=== PATIENT | male | born 1970 | race Caucasian/White ===

== ENCOUNTER 2017-02-25 14:24 | Emergency (ER) | payer SELFPAY ==
[~2017-02-25 14:24] MED LIST: ASPI-630 PO; FLUT16SP21 NS; LISI1TAB5 PO; METO-247 PO; OMEP40CA5 PO; ROPI0.5T PO
[2017-02-25] MEDS ORDERED: METOPROLOL TARTRATE 5 MG/5 ML VIAL. IV ONE (15:21)
[2017-02-25 15:36] LABS: ALBUMIN 3.6 g/dL (3.4-5.0); CALCIUM 9.1 mg/dL (8.5-10.1); CREATININE 1.4 mg/dL (0.7-1.3); GFR 54.8; TOTAL BILIRUBIN 0.3 mg/dL (0.2-1.0); TOTAL PROTEIN 7.1 g/dL (6.4-8.2)
[2017-02-25 15:41] LABS: BASO # 0.1 x10^3/uL (0.0-0.2); BASO % 1 % (0-3); EOS # 0.2 x10^3/uL (0.0-0.7); EOS % 2 % (0-3); HEMATOCRIT 45.8 % (39.0-53.0); HEMOGLOBIN 16.1 g/dL (13.0-17.5); LYMPH # 2.6 x10^3/uL (1.0-4.8); LYMPH % 36 % (24-48); MEAN CORPUSCULAR HEMOGLOBIN 30 pg (25-35); MEAN CORPUSCULAR HGB CONC 35 g/dL (31-37); MEAN CORPUSCULAR VOLUME 86 fL (79-100); MONO # 0.5 x10^3/uL (0.0-1.1); MONO % 7 % (0-9); NEUT # 3.8 x10^3uL (1.8-7.7); NEUT % 54 % (31-73); PLATELET COUNT 269 x10^3/uL (140-400); RED BLOOD COUNT 5.31 x10^6/uL (4.30-5.70); WHITE BLOOD COUNT 7.1 x10^3/uL (4.0-11.0)
[2017-02-25] MEDS ORDERED: LIDO:MAALOX 1:1 20 ML SINGLE DOSE PO ONE (16:15)
--- NOTE | 2017-02-25 16:30 | PHYS DOC ---
Past History Past Medical History: Hypertension, [place] Past Surgical History: No Surgical History Alcohol Use: Occasionally Drug Use: Marijuana Adult General Chief Complaint Chief Complaint: CHEST PAIN HPI HPI Patient is a 46 year old M who presents with chest pain. Roger states that he began having intermittent central sharp chest pain that radiates to the left arm and into the fingers on Saturday. He feels that his pain is worse with exacerbation and improved with rest. He states that this is similar to his previous 3 heart attacks. His pain recurred this morning and again just prior to arrival. Review of Systems Review of Systems Constitutional: Denies fever or chills [] Eyes: Denies change in visual acuity, redness, or eye pain [] HENT: Denies nasal congestion or sore throat [] Respiratory: Denies cough or shortness of breath [] Cardiovascular: No additional information not addressed in HPI [] GI: Denies abdominal pain, nausea, vomiting, bloody stools or diarrhea [] : Denies dysuria or hematuria [] Musculoskeletal: Denies back pain or joint pain [] Integument: Denies rash or skin lesions [] Neurologic: Denies headache, focal weakness or sensory changes [] Endocrine: Denies polyuria or polydipsia [] Family History Family History Family history was reviewed Current Medications Current Medications Current Medications Medications (Trade) Dose Ordered Sig/Sparkle Start Time Stop Time Status Last Admin Dose Admin Metoprolol Tartrate (Lopressor) 5 mg STK-MED ONCE 02/25/17 15:21 02/25/17 15:22 DC Multi-Ingredient Mouthwash/Gargle (Gi Cocktail) 20 ml 1X ONCE 02/25/17 16:15 02/25/17 16:16 DC He has not been taking his current prescribed medications because he is in between jobs Allergies Allergies Allergies Coded Allergies Type Severity Reaction Last Updated Verified No Known Drug Allergies 01/11/16 No Physical Exam Physical Exam Constitutional: Well developed, well nourished, no acute distress, non-toxic appearance. [] HENT: Normocephalic, atraumatic, bilateral external ears normal, oropharynx moist, no oral exudates, nose normal. [] Eyes: PERRLA, EOMI, conjunctiva normal, no discharge. [] Neck: Normal range of motion, no tenderness, supple, no stridor. [] Cardiovascular:Heart rate regular rhythm, no murmur [] mild tenderness to palpation over the sternum Lungs & Thorax: Bilateral breath sounds clear to auscultation [] Abdomen: Bowel sounds normal, soft, no tenderness, no masses, no pulsatile masses. [] Skin: Warm, dry, no erythema, no rash. [] Back: No tenderness, no CVA tenderness. [] Extremities: No tenderness, no cyanosis, no clubbing, ROM intact, no edema. [] Neurologic: Alert and oriented X 3, normal motor function, normal sensory function, no focal deficits noted. [] Psychologic: Affect normal, judgement normal, mood normal. [] Current Patient Data Vital Signs Vital Signs Date Time Temp Pulse Resp B/P (MAP) Pulse Ox O2 Delivery O2 Flow Rate FiO2 02/25/17 15:25 187/111 (136) 02/25/17 15:04 97.8 70 14 97 Room Air Lab Results Laboratory Tests Test 02/25/17 15:00 White Blood Count 7.1 x10^3/uL (4.0-11.0) Red Blood Count 5.31 x10^6/uL (4.30-5.70) Hemoglobin 16.1 g/dL (13.0-17.5) Hematocrit 45.8 % (39.0-53.0) Mean Corpuscular Volume 86 fL (79-100) Mean Corpuscular Hemoglobin 30 pg (25-35) Mean Corpuscular Hemoglobin Concent 35 g/dL (31-37) Red Cell Distribution Width 13.0 % (11.5-14.5) Platelet Count 269 x10^3/uL (140-400) Neutrophils (%) (Auto) 54 % (31-73) Lymphocytes (%) (Auto) 36 % (24-48) Monocytes (%) (Auto) 7 % (0-9) Eosinophils (%) (Auto) 2 % (0-3) Basophils (%) (Auto) 1 % (0-3) Neutrophils # (Auto) 3.8 x10^3uL (1.8-7.7) Lymphocytes # (Auto) 2.6 x10^3/uL (1.0-4.8) Monocytes # (Auto) 0.5 x10^3/uL (0.0-1.1) Eosinophils # (Auto) 0.2 x10^3/uL (0.0-0.7) Basophils # (Auto) 0.1 x10^3/uL (0.0-0.2) Sodium Level 143 mmol/L (136-145) Potassium Level 4.0 mmol/L (3.5-5.1) Chloride Level 106 mmol/L (98-107) Carbon Dioxide Level 31 mmol/L (21-32) Anion Gap 6 (6-14) Blood Urea Nitrogen 19 mg/dL (8-26) Creatinine 1.4 mg/dL (0.7-1.3) H Estimated GFR (Cockcroft-Gault) 54.8 BUN/Creatinine Ratio 14 (6-20) Glucose Level 93 mg/dL (70-99) Calcium Level 9.1 mg/dL (8.5-10.1) Total Bilirubin 0.3 mg/dL (0.2-1.0) Aspartate Amino Transferase (AST) 13 U/L (15-37) L Alanine Aminotransferase (ALT) 25 U/L (16-63) Alkaline Phosphatase 98 U/L (46-116) Troponin I Quantitative < 0.017 ng/mL (0-0.055) Total Protein 7.1 g/dL (6.4-8.2) Albumin 3.6 g/dL (3.4-5.0) Albumin/Globulin Ratio 1.0 (1.0-1.7) EKG EKG NSR, non-specific ST changes in the lateral leads. Course & Med Decision Making Course & Med Decision Making Pertinent Labs and Imaging studies reviewed. (See chart for details) Admission for ACS rule out was recommended based on risk factors as well as the fact that Roger states this pain is similar to his previous 3 heart attacks. He was strongly advised to be admitted for a minimum of observation. He states that "he has things to do". He declined admission. He was able to verbalize that there is risk for and permeate disability. Dragon Disclaimer Dragon Disclaimer This chart was dictated in whole or in part using Voice Recognition software in a busy, high-work load, and often noisy Emergency Department environment. It may contain unintended and wholly unrecognized errors or omissions. Departure Departure: Impression: Primary Impression: Chest pain Disposition: 07 AGAINST MEDICAL ADVICE Referrals: QASIM UREÑA MD (PCP) ARACELI ESTEVEZ MD Feb 25, 2017 16:30
[2017-02-25 16:57] VITALS: BP 163/88
== END 2017-02-25 16:15 | disposition left against medical advice (07) ==
LOC: ER 14:24
DX: R07.89 Other chest pain (principal); I25.2 Old myocardial infarction; I10 Essential (primary) hypertension
CPT/HCPCS: 36415; 80053; 84484; 85025; 99284

== ENCOUNTER 2018-06-17 16:48 | Emergency (ER) | payer SELFPAY ==
[~2018-06-17] VITALS: Ht 185.4 cm; Wt 100.7 kg
--- NOTE | 2018-06-17 17:19 | PHYS DOC ---
Past History Past Medical History: Hypertension, [place] Past Surgical History: No Surgical History Smoking: Cigarettes Alcohol Use: Occasionally Drug Use: Marijuana Adult General Chief Complaint Chief Complaint: LOWER BACK PAIN OR INJURY HPI HPI Patient is a 47 year old male who presents with complaining of right flank pain for 1 week. Patient complaining of sudden onset of right flank pain with radiation to right lower quadrant that happens several times a day and usually lasts about corroborates and associated with nausea without fever, chills, urinary symptoms, vomiting and diarrhea. Patient states the pain is 10 over 10 during episodes of sharp pain. Patient with the pain partially improves with ibuprofen. Patient denies history of same pain but states had history of urinary tract infection. Review of Systems Review of Systems Constitutional: Denies fever or chills [] Eyes: Denies change in visual acuity, redness, or eye pain [] HENT: Denies nasal congestion or sore throat [] Respiratory: Denies cough or shortness of breath [] Cardiovascular: No additional information not addressed in HPI [] GI: Denies abdominal pain, nausea, vomiting, bloody stools or diarrhea [] : Denies dysuria or hematuria [] Musculoskeletal: Reports back pain Integument: Denies rash or skin lesions [] Neurologic: Denies headache, focal weakness or sensory changes [] Endocrine: Denies polyuria or polydipsia [] All other systems were reviewed and found to be within normal limits, except as documented in this note. Allergies Allergies Allergies Coded Allergies Type Severity Reaction Last Updated Verified No Known Drug Allergies 01/11/16 No Physical Exam Physical Exam Constitutional: Well developed, well nourished,mild distress, non-toxic appearance. [] HENT: Normocephalic, atraumatic Eyes: PERRLA, EOMI, conjunctiva normal, no discharge. [] Neck: Normal range of motion, no tenderness, supple, no stridor. [] Cardiovascular:Heart rate regular rhythm, no murmur [] Lungs & Thorax: Bilateral breath sounds clear to auscultation [] Abdomen: Bowel sounds normal, soft, no tenderness, no masses, no pulsatile masses. [] Skin: Warm, dry, no erythema, no rash. [] Back: No tenderness, no CVA tenderness. [] Extremities: No tenderness, no cyanosis, no clubbing, ROM intact, no edema. [] Neurologic: Alert and oriented X 3, normal motor function, normal sensory function, no focal deficits noted. [] Psychologic: Affect anxious, judgement normal, mood normal. [] EKG EKG [] Radiology/Procedures Radiology/Procedures [] Course & Med Decision Making Course & Med Decision Making Pertinent Labs and Imaging are pending. Evaluation of patient in ER showed 47-year-old male patient with complaining of intermittent episodes of right flank pain for 1 week. Patient had unremarkable physical exam. Patient had blood pressure of 160s at arrival to ER and states he did not take his blood pressure medication because of lack of insurance. CT abdomen and pelvis and UA is pending. Patient treated with Toradol and felt better. Patient care transferred to Dr. Cabrera at 1800.[] Impression : 1. Abdomen Pain 2. Constipation 3. CT shows no Hydronephrosis or finding of Appendicitis 4. Tobacco use Pt. to stay on clear fluid diet x 48 hrs. No solids or milk products. Push fluids. Re-exam if no improvement. Follow up with primary. Rashaun Disclaimer Rashaun Disclaimer This electronic medical record was generated, in whole or in part, using a voice recognition dictation system. Departure Departure: Impression: Primary Impression: Right flank pain Additional Impressions: Uncontrolled hypertension Tobacco abuse Tobacco abuse counseling Referrals: QASIM UREÑA MD (PCP) Rashaun Disclaimer This chart was dictated in whole or in part using Voice Recognition software in a busy, high-work load, and often noisy Emergency Department environment. It may contain unintended and wholly unrecognized errors or omissions. Discharge Summary Brief Hospital Course Allergies Allergies Coded Allergies Type Severity Reaction Last Updated Verified No Known Drug Allergies 01/11/16 No Vital Signs Vital Signs Date Time Temp Pulse Resp B/P (MAP) Pulse Ox O2 Delivery O2 Flow Rate FiO2 06/17/18 19:46 67 190/113 (138) 98 06/17/18 18:59 16 06/17/18 18:29 Room Air 06/17/18 16:55 97.7 Lab Results Laboratory Tests Test 06/17/18 17:55 Urine Collection Type Unknown Urine Color Yellow Urine Clarity Clear Urine pH 7.0 Urine Specific [place] 1.020 Urine Protein Neg (NEG-TRACE) Urine Glucose (UA) Neg mg/dL (NEG) Urine Ketones (Stick) Neg mg/dL (NEG) Urine Blood Neg (NEG) Urine Nitrite Neg (NEG) Urine Bilirubin Neg (NEG) Urine Urobilinogen Dipstick 0.2 mg/dL (0.2 mg/dL) Urine Leukocyte Esterase Neg (NEG) Brief Hospital Course Mr. Mcdonough is a 47 old male who presented with Rt. flank and abd. pain. No surgical pathology noted on CT. To remain on clear fluid diet x 48hrs. Follow up with primary. Return if no improvement. Discharge Information Condition at Discharge: Improved, Stable Disposition/Orders: D/C to Home Dischare Medications Current Medications Ketorolac Tromethamine (Toradol Im) 60 mg 1X ONCE IM Last administered on at 17:21; Start 06/17/18 at 17:30; Stop 06/17/18 at 17:31; Status DC Magnesium Hydroxide (Milk Of Magnesia) 2,400 mg 1X ONCE PO Last administered on 06/17/18at 19:18; Start 06/17/18 at 19:15; Stop 06/17/18 at 19:16; Status DC Active Scripts Active Reported Aspirin 81 Mg Tab.chew 81 Mg PO DAILY Fluticasone Propionate Nasal [place] (Fluticasone Propionate) 16 Gm [place].susp 2 Spr NS DAILY Omeprazole 40 Mg Capsule.dr 1 Cap PO DAILY Requip (Ropinirole Hcl) 0.5 Mg Tablet 1 Tab PO QHS Metoprolol Succinate ( Xl ) (Metoprolol Succinate) 100 Mg Tab.er.24h 1 Tab PO DAILY Lisinopril-Hctz 20-12.5 Mg Tab (Lisinopril/Hydrochlorothiazide) 1 Each Tablet 1 Tab PO DAILY Problem Qualifiers LESTER SPENCER MD Jun 17, 2018 17:19 TAY CABRERA MD Jun 18, 2018 02:59
[2018-06-17] MEDS ORDERED: KETOROLAC 60 MG/2 ML VIAL. IM ONE (17:30)
--- NOTE | 2018-06-17 18:03 | RAD ---
Examination: CT ABDOMEN PELVIS WO CONTRAST History: Right flank pain graduating down back and into pelvis. for 24 hrs. No nausea, vomiting or fever. No visualized hematuria
Comparison/Correlation: None Findings: Axial images of the abdomen and pelvis were obtained without contrast. Sagittal and coronal reformatted images were provided. Visualized lung bases are clear. Unenhanced liver and spleen are unremarkable. Gallbladder fossa is unremarkable. Gallbladder is decompressed. Significant distention of the stomach with fluid and debris is noted. No significant distention of bowel identified however. There is no hydronephrosis. No radiopaque collecting system calculi. Umbilical hernia contains omental fat. Appendix is normal. Moderate quantity of stool in the colon. No extraluminal gas. No ascites or pelvic free fluid. No enlarged abdominal or pelvic lymph nodes. Urinary bladder is mostly decompressed but unremarkable. Bony structures are unremarkable for the patient's age. Impression: Stomach is distended with debris and fluid. No radiopaque collecting system calculi or obstruction. No inflammatory change about the cecum. Electronically signed by: Derek Thomason MD (06/17/2018 5:59 PM) [facility]
[2018-06-17] MEDS ORDERED: MAGNESIUM HYDROXIDE 2,400 MG/30 ML ORAL.SUSP. PO ONE (19:15)
[2018-06-17 19:46] VITALS: BP 190/113
[2018-06-17 21:55] LABS: BILIRUBIN,URINE NEG (NEG); CLARITY,URINE CLEAR; COLOR,URINE YELLOW; GLUCOSE,URINE NEG (NEG); NITRITE,URINE NEG (NEG); UROBILINOGEN,URINE 0.2 mg/dL (0.2 mg/dL)
== END 2018-06-17 19:47 | disposition home or self-care (01) ==
LOC: ER 16:48
DX: K59.00 Constipation, unspecified (principal); I10 Essential (primary) hypertension; I25.2 Old myocardial infarction; F17.210 Nicotine dependence, cigarettes, uncomplicated; Z71.6 Tobacco abuse counseling
CPT/HCPCS: 74176; 81003; 96372; 99284; J1885